=== PATIENT | female | born 1960 | race Two or more races ===

== ENCOUNTER 2024-03-23 16:03 | Inpatient (IN) | payer OTHER ==
[~2024-03-23] VITALS: Ht 165.1 cm; Wt 113.4 kg
[2024-03-23] MEDS ORDERED: LOSARTAN POTASS50 MG PO (16:20)
[2024-03-23] MEDS ORDERED: GABAPENTIN300 M2 PO (16:20)
[2024-03-23] MEDS ORDERED: INSULIN GL300 UNIT/2 SQ (16:20)
[2024-03-23] MEDS ORDERED: ATORVASTATIN CA40 MG PO (16:20)
[2024-03-23] MEDS ORDERED: 0.9 % SODIUM CHLORIDE 1,000 ML IV STA (16:43)
[2024-03-23] MEDS ORDERED: IPRATROPIUM/ALBUTEROL SULFATE 3 ML AMPUL.NEB IH SCH (16:45)
[2024-03-23] MEDS ORDERED: BENZONATATE 100 MG CAPSULE PO ONE (16:45)
[2024-03-23] MEDS ORDERED: AZITHROMYCIN 500 MG VIAL IV ONE (16:45)
[2024-03-23 17:41] LABS: ABG PH 7.422 (7.35-7.45); ABG PO2 67.2 mmHg (80-100); ABG pCO2 33.7 mmHg (35-45); BASE EXCESS -2.1 mmol/l; BICARBONATE 21.5 mmol/l (23-25); SaO2 93.4 %; Tco2 22.5 mmol/l
[2024-03-23 17:43] LABS: allen test SATISFACTORY; o2 21 %; puncture site RADIAL RIGHT
[2024-03-23 17:48] LABS: HEMATOCRIT 39.5 % (36.0-45.00); HEMOGLOBIN 13.5 g/dL (12.0-15.00); MEAN CORPUSCULAR HEMOGLOBIN 29.7 pg (27.00-32.0); MEAN CORPUSCULAR HGB CONC 34.1 g/dl (32.0-36.0); PLATELET COUNT 190 K/uL (150-450); RED BLOOD COUNT 4.53 M/uL (4.00-6.00); RED CELL DISTRIBUTION WIDTH 13.8 % (11.5-14.5)
[2024-03-23 18:15] LABS: CALCIUM 9.6 mg/dL (8.5-10.1); CREATININE SERUM 0.9 mg/dL (0.55-1.02); GFR 63.65; POTASSIUM 4.13 mEq/L (3.5-5.1)
[2024-03-23] MEDS ORDERED: METHYLPREDNISOLONE SOD SUCC 40 MG VIAL IV STA (20:39)
[2024-03-23] MEDS ORDERED: CEFTRIAXONE SODIUM 2,000 MG in 0.9 % SODIUM CHLORIDE 100 ML IV SCH (20:42)
[2024-03-23] MEDS ORDERED: 0.9 % SODIUM CHLORIDE 1,000 ML IV SCH (23:45)
[2024-03-23] MEDS ORDERED: INSULIN LISPRO 1,000 UNIT/10 ML UNITS SUBCUTANEO PRN (23:45)
[2024-03-23] MEDS ORDERED: DEXTROSE 50 % IN WATER 0.5 G/ML DISP.SYRIN IV PRN (23:45)
[2024-03-23] MEDS ORDERED: IPRATROPIUM BROMIDE 0.5 MG/2.5 ML AMPUL.NEB IH SCH (23:51)
[2024-03-23] MEDS ORDERED: LEVALBUTEROL HCL 1.25 MG/3 ML SOLUTION IH SCH (23:51)
[2024-03-23] MEDS ORDERED: MONTELUKAST SODIUM 10 MG TABLET PO SCH (23:53)
[2024-03-24] MEDS ORDERED: GUAIFEN/DEXTROMETHORPHAN/PE 10 ML BLIST.PACK PO SCH (01:00)
[2024-03-24] MEDS ORDERED: METHYLPREDNISOLONE SOD SUCC 40 MG VIAL IV SCH (01:00)
[2024-03-24 02:23] LABS: D DIMER 0.44 MG/L; PARTIAL THROMBOPLASTIN TIME 25.6 SECONDS (22.0-34.0)
[2024-03-24 02:37] LABS: PROTHROMBIN TIME 10.9 SECONDS (9.0-11.5)
[2024-03-24 04:12] LABS: URINE APPEARANCE Clear; URINE BILIRRUBIN Negative (NEGATIVE); URINE BLOOD Negative; URINE COLOR Yellow; URINE KETONE Trace (NEGATIVE); URINE LEUKOCYTE Negative; URINE NITRATE Negative; URINE PROTEIN Negative (NEGATIVE); URINE UROBILINOGEN 0.2 E.U./dl
[2024-03-24 04:15] VITALS: BP 119/70; O2SAT 96
[2024-03-24 04:30] LABS: URINE BACTERIA 201.5 uL (0.0-1933); URINE EPITHELIAL CELLS 7.1 uL (0.0-38.8); URINE RBC 23.1 uL (0.0-20.8); URINE WBC 3.2 uL (0.0-23.2)
[2024-03-24 05:01] LABS: URINE CAST 0.15 uL (0.0-1.40); URINE GLUCOSE >=1000 MG/DL (NEGATIVE)
[2024-03-24 05:02] LABS: URINE YEAST FEW /hpf
[2024-03-24 08:50] VITALS: BP 122/79
[2024-03-24] MEDS ORDERED: ENOXAPARIN SODIUM 40 MG/0.4 ML SYRINGE SUBCUTANEO SCH (09:00)
[2024-03-24] MEDS ORDERED: FAMOTIDINE/PF 20 MG in 0.9 % SODIUM CHLORIDE 8 ML IV PUSH SCH (09:00)
[2024-03-24] MEDS ORDERED: AZITHROMYCIN 500 MG in DEXTROSE 5 % IN WATER 250 ML IV SCH (09:00)
[2024-03-24] MEDS ORDERED: LOSARTAN POTASSIUM 50 MG TABLET PO SCH (09:00)
[2024-03-24] MEDS ORDERED: ATORVASTATIN CALCIUM 40 MG TABLET PO SCH (09:00)
[2024-03-24 16:23] VITALS: BP 127/76
[2024-03-24] MEDS ORDERED: VITAMIN B COMPLEX/LYSINE 1 ML ML PO SCH (17:00)
[2024-03-24 20:00] VITALS: BP 143/60; O2SAT 98
[2024-03-24] MEDS ORDERED: INSULIN GLARGINE,HUM.REC.ANLOG 1,000 UNITS/10 ML UNITS SUBCUTANEO STA (21:06)
[2024-03-25 01:51] VITALS: BP 120/73; O2SAT 99
[2024-03-25 06:24] LABS: CHOL HDL RATIO 3.3 (0-5.0)
[2024-03-25] MEDS ORDERED: INSULIN LISPRO 1,000 UNIT/10 ML UNITS SUBCUTANEO SCH ×2 (08:00→17:00)
[2024-03-25 09:11] VITALS: BP 132/88; O2SAT 99
[2024-03-25 15:26] LABS: HEMATOCRIT 38.6 % (36.0-45.00); HEMOGLOBIN 12.9 g/dL (12.0-15.00); MEAN CELL VOLUME 86.9 fL (80.00-100.00); MEAN CORPUSCULAR HEMOGLOBIN 29.1 pg (27.00-32.0); MEAN CORPUSCULAR HGB CONC 33.5 g/dl (32.0-36.0); PLATELET COUNT 170 K/uL (150-450); RED BLOOD COUNT 4.44 M/uL (4.00-6.00); RED CELL DISTRIBUTION WIDTH 13.9 % (11.5-14.5)
[2024-03-25 15:55] LABS: ALBUMIN 3.5 gm/dL (3.4-5.0); BILIRUBIN TOTAL 0.23 mg/dL (0.3-1.2); CALCIUM 9.4 mg/dL (8.5-10.1); CREATININE SERUM 0.78 mg/dL (0.55-1.02); GFR 75.08; GLOBULINA 3.4 G/DL (2.4-3.5); MAGNESIUM 2.1 mg/dL (1.8-2.4); PHOSPHOROUS 3.7 mg/dL (2.5-4.9); POTASSIUM 4.06 mEq/L (3.5-5.1); TOTAL PROTEIN 6.9 gm/dL (6.4-8.2)
[2024-03-25 16:00] VITALS: BP 149/88; O2SAT 95
[2024-03-25] MEDS ORDERED: FLUTICASONE PROPIONATE 50 MCG SPRAY NASAL SCH (16:22)
[2024-03-25] MEDS ORDERED: INSULIN GLARGINE,HUM.REC.ANLOG 1,000 UNITS/10 ML UNITS SUBCUTANEO SCH ×3 (21:00)
[2024-03-26 01:59] VITALS: BP 145/70; O2SAT 97
[2024-03-26 05:28] VITALS: BP 139/75; O2SAT 97
[2024-03-26] MEDS ORDERED: INSULIN LISPRO 1,000 UNIT/10 ML UNITS SUBCUTANEO SCH (08:00)
[2024-03-26 11:13] VITALS: BP 142/83; O2SAT 98
[2024-03-26 17:41] VITALS: BP 185/77
[2024-03-27 01:46] VITALS: BP 151/76; O2SAT 97
[2024-03-27 08:38] VITALS: BP 175/80
[2024-03-27] MEDS ORDERED: ACETAMINOPHEN 500 MG GEL..CAP PO PRN (11:15)
[2024-03-27] MEDS ORDERED: LOSARTAN POTASSIUM 50 MG TABLET PO STA (11:26)
[2024-03-27 17:19] VITALS: BP 148/74
[2024-03-27] MEDS ORDERED: METHYLPREDNISOLONE SOD SUCC 40 MG VIAL IV SCH (21:00)
[2024-03-27] MEDS ORDERED: FAMOtidine 20 MG TABLET PO SCH (21:00)
[2024-03-27 23:53] VITALS: BP 144/87; O2SAT 99
[2024-03-28 06:08] LABS: ALBUMIN 3.5 gm/dL (3.4-5.0); BILIRUBIN TOTAL 0.3 mg/dL (0.3-1.2); CALCIUM 8.9 mg/dL (8.5-10.1); CREATININE SERUM 0.62 mg/dL (0.55-1.02); GFR 97.86; GLOBULINA 3.4 G/DL (2.4-3.5); MAGNESIUM 2.2 mg/dL (1.8-2.4); PHOSPHOROUS 4.8 mg/dL (2.5-4.9); POTASSIUM 3.25 mEq/L (3.5-5.1); TOTAL PROTEIN 6.9 gm/dL (6.4-8.2)
[2024-03-28 08:11] VITALS: BP 143/85
[2024-03-28] MEDS ORDERED: LOSARTAN POTASSIUM 100 MG TABLET PO SCH (09:00)
[2024-03-28] MEDS ORDERED: POTASSIUM BICARBONATE/CIT AC 25 MEQ TABLET.EFF PO SCH (11:48)
[2024-03-28] MEDS ORDERED: POTASSIUM CHLORIDE 20MEQ/100ML H2O PB IV NR (12:00)
[2024-03-28 15:24] LABS: ABG PH 7.447 (7.35-7.45); ABG PO2 76.2 mmHg (80-100); ABG pCO2 33.7 mmHg (35-45); BASE EXCESS -0.5 mmol/l; BICARBONATE 22.8 mmol/l (23-25); SaO2 95.7 %
[2024-03-28 15:25] LABS: Tco2 23.8 mmol/l; allen test SATISFACTORY; o2 21 %; puncture site RADIAL LEFT
[2024-03-28 18:41] VITALS: BP 139/85; O2SAT 97
[2024-03-29 01:20] VITALS: BP 125/79; O2SAT 98
[2024-03-29] MEDS ORDERED: INSULIN LISPRO 1,000 UNIT/10 ML UNITS SUBCUTANEO SCH (08:00)
[2024-03-29] MEDS ORDERED: METHYLPREDNISOLONE SOD SUCC 40 MG VIAL IV SCH (09:00)
[2024-03-29 09:32] VITALS: BP 120/79; O2SAT 98
[2024-03-29] MEDS ORDERED: XOPENEX CO1.25 MG/0. IH (12:12)
[2024-03-29] MEDS ORDERED: LIPITOR40 M1 PO (12:12)
[2024-03-29] MEDS ORDERED: IPRATROPIU0.2 MG/1 M IH (12:12)
[2024-03-29] MEDS ORDERED: LOSARTAN POTAS100 MG PO (12:13)
[2024-03-29] MEDS ORDERED: MONTELUKAST SOD10 MG PO (12:13)
[2024-03-29] MEDS ORDERED: FLONASE16 GM NASAL (12:14)
[2024-03-29] MEDS ORDERED: FAMOTIDINE20 MG PO (12:14)
[2024-03-29] MEDS ORDERED: JANUMET 50-1,01 EACH PO (12:15)
[2024-03-29] MEDS ORDERED: DIABETIC TUSSI118 ML PO (12:18)
== END 2024-03-29 13:03 | disposition home or self-care (01) | DRG 203 ==
LOC: ER 16:03 → MEDJ 23:54
PROVIDERS: Emergency Medicine; General Practice; ADMIT Internal Medicine; ATTEND Internal Medicine
PROC: BW24ZZZ Computerized Tomography (CT Scan) of Chest and Abdomen (ICD-10-PCS; principal; 2024-03-23)
DX: J45.41 Moderate persistent asthma with (acute) exacerbation (principal); J40 Bronchitis, not specified as acute or chronic; I10 Essential (primary) hypertension; Z79.4 Long term (current) use of insulin; E78.5 Hyperlipidemia, unspecified; E11.65 Type 2 diabetes mellitus with hyperglycemia; E66.01 Morbid (severe) obesity due to excess calories

== ENCOUNTER 2024-10-09 04:47 | Emergency (ER) | payer OTHER ==
[~2024-10-09] VITALS: Ht 165.1 cm; Wt 90.7 kg
[~2024-10-09 04:47] MED LIST: ATORVASTATIN CA40 MG PO; DIABETIC TUSSI118 ML PO; FAMOTIDINE20 MG PO; FLONASE16 GM NASAL; GABAPENTIN300 M2 PO; INSULIN GL300 UNIT/2 SQ; IPRATROPIU0.2 MG/1 M IH; JANUMET 50-1,01 EACH PO; LIPITOR40 M1 PO; LOSARTAN POTAS100 MG PO; LOSARTAN POTASS50 MG PO; MONTELUKAST SOD10 MG PO; XOPENEX CO1.25 MG/0. IH
[2024-10-09] MEDS ORDERED: CEFTRIAXONE SODIUM 1,000 MG VIAL IM STA (06:05)
[2024-10-09] MEDS ORDERED: CEFTRIAXONE SODIUM 1,000 MG VIAL ONE (06:42)
[2024-10-09] MEDS ORDERED: MUPIROCIN1 G1 TOP (06:43)
[2024-10-09] MEDS ORDERED: CEPHALEXIN500 MG PO (06:43)
== END 2024-10-09 06:52 ==
LOC: ER 04:47
DX: L08.9 Local infection of the skin and subcutaneous tissue, unspecified (principal); I10 Essential (primary) hypertension; E11.9 Type 2 diabetes mellitus without complications; Z79.4 Long term (current) use of insulin

== ENCOUNTER 2024-12-02 08:54 | Emergency (ER) | payer OTHER ==
[~2024-12-02] VITALS: Ht 165.1 cm; Wt 99.8 kg
[~2024-12-02 08:54] MED LIST changes: +CEPHALEXIN500 MG PO; +MUPIROCIN1 G1 TOP
[2024-12-02] MEDS ORDERED: LEVALBUTEROL HCL 1.25 MG/3 ML SOLUTION IH ONE (10:00)
[2024-12-02] MEDS ORDERED: METHYLPREDNISOLONE SOD SUCC 40 MG VIAL IV ONE (10:00)
[2024-12-02] MEDS ORDERED: GUAIFEN/DEXTROMETHORPHAN/PE 10 ML BLIST.PACK PO ONE (10:00)
[2024-12-02 10:22] LABS: HEMATOCRIT 39.7 % (34.1-44.9); HEMOGLOBIN 13.1 g/dL (11.2-15.7); LYMPH # 0.79 (1.18-3.74); LYMPH % 10.2 % (19.3-53.1); MEAN CORPUSCULAR HEMOGLOBIN 28.6 pg (25.6-32.2); MONO # 0.36 (0.24-0.82); MONO % 4.7 % (4.7-12.5); NEUT # 6.55 (1.56-6.13); NEUT % 84.6 % (34.0-71.1); PLATELET COUNT 239 K/uL (163-369); RED BLOOD COUNT 4.58 M/uL (3.93-5.22); RED CELL DISTRIBUTION WIDTH 12.9 % (11.6-14.4)
[2024-12-02 10:57] LABS: ALBUMIN 3.8 gm/dL (3.4-5.0); BILIRUBIN TOTAL 0.42 mg/dL (0.3-1.2); CALCIUM 9.8 mg/dL (8.5-10.1); CREATININE SERUM 0.6 mg/dL (0.55-1.02); GFR 101.3; GLOBULINA 4.6 G/DL (2.4-3.5); POTASSIUM 4.1 mEq/L (3.5-5.1); TOTAL PROTEIN 8.4 gm/dL (6.4-8.2)
[2024-12-02 11:06] LABS: COVID-19 AG NEGATIVE (NEGATIVE)
[2024-12-02 11:07] LABS: INFLUENZA A AG NEGATIVE (NEGATIVE); INFLUENZA B AG NEGATIVE (NEGATIVE)
[2024-12-02 11:52] LABS: PH,URINE 6.5 (5.0-8.0); URINE APPEARANCE Clear; URINE BILIRRUBIN Negative (NEGATIVE); URINE BLOOD Negative; URINE COLOR Yellow; URINE GLUCOSE Negative (NEGATIVE); URINE KETONE Negative (NEGATIVE); URINE LEUKOCYTE Small; URINE NITRATE Negative; URINE PROTEIN Negative (NEGATIVE); URINE UROBILINOGEN 0.2 E.U./dl
[2024-12-02 11:56] LABS: URINE BACTERIA 681.6 uL (0.0-1933); URINE EPITHELIAL CELLS 24.3 uL (0.0-38.8); URINE RBC 10.3 uL (0.0-20.8); URINE WBC 17.7 uL (0.0-23.2)
[2024-12-02 12:01] LABS: URINE CAST 0.29 uL (0.0-1.40)
== END 2024-12-02 13:11 | disposition home or self-care (01) ==
LOC: ER 08:54
PROVIDERS: Emergency Medicine
DX: J45.909 Unspecified asthma, uncomplicated (principal); R05.9 Cough, unspecified; Z20.822 Contact with and (suspected) exposure to COVID-19; I10 Essential (primary) hypertension; E11.9 Type 2 diabetes mellitus without complications; Z79.4 Long term (current) use of insulin

== ENCOUNTER 2024-12-05 08:14 | Emergency (ER) | payer OTHER ==
[~2024-12-05] VITALS: Ht 165.1 cm; Wt 97.5 kg
[2024-12-05] MEDS ORDERED: BUDESONIDE 0.5 MG/2 ML AMPUL.NEB IH ONE (10:45)
[2024-12-05] MEDS ORDERED: BUDESONIDE0.5 MG/2 M IH (12:18)
== END 2024-12-05 12:29 | disposition home or self-care (01) ==
LOC: ER 08:14
DX: J45.909 Unspecified asthma, uncomplicated (principal); E11.9 Type 2 diabetes mellitus without complications; Z79.4 Long term (current) use of insulin

== ENCOUNTER 2025-02-01 08:49 | Emergency (ER) | payer OTHER ==
[~2025-02-01] VITALS: Ht 165.1 cm; Wt 107.5 kg
[~2025-02-01 08:49] MED LIST changes: +BUDESONIDE0.5 MG/2 M IH
[2025-02-01] MEDS ORDERED: IBUPROFEN600 MG PO (09:39)
[2025-02-01] MEDS ORDERED: DEXAMETHASONE SODIUM PHOSPHATE 4 MG/ML VIAL ONE (09:40)
[2025-02-01] MEDS ORDERED: KETOROLAC TROMETHAMINE 30 MG VIAL ONE (09:40)
[2025-02-01] MEDS ORDERED: DEXAMETHASONE SODIUM PHOSPHATE 4 MG/ML VIAL IM ONE (09:45)
[2025-02-01] MEDS ORDERED: KETOROLAC TROMETHAMINE 30 MG VIAL IM ONE (09:45)
== END 2025-02-01 09:53 | disposition home or self-care (01) ==
LOC: ER 08:51
DX: M77.32 Calcaneal spur, left foot (principal); E11.9 Type 2 diabetes mellitus without complications; Z79.4 Long term (current) use of insulin

== ENCOUNTER 2025-03-04 04:38 | Emergency (ER) | payer OTHER ==
[~2025-03-04] VITALS: Ht 165.1 cm; Wt 108.9 kg
[~2025-03-04 04:38] MED LIST changes: +IBUPROFEN600 MG PO
[2025-03-04] MEDS ORDERED: NITROGLYCERIN IN 5 % DEXTROSE 50 MG/250 ML BOTTLE IV STA (05:04)
[2025-03-04 06:20] LABS: ABG PH 7.386 (7.35-7.45); ABG PO2 83.3 mmHg (80-100); BICARBONATE 21.8 mmol/l (23-25); o2 21 %
[2025-03-04 08:02] LABS: URINE APPEARANCE Clear; URINE BILIRRUBIN Negative (NEGATIVE); URINE BLOOD Negative; URINE COLOR Yellow; URINE GLUCOSE Negative (NEGATIVE); URINE KETONE Negative (NEGATIVE); URINE LEUKOCYTE Small; URINE NITRATE Negative; URINE PROTEIN Negative (NEGATIVE); URINE UROBILINOGEN 0.2 E.U./dl
[2025-03-04 08:04] LABS: URINE BACTERIA 1516.6 uL (0.0-1933); URINE EPITHELIAL CELLS 48.2 uL (0.0-38.8); URINE RBC 10.9 uL (0.0-20.8); URINE WBC 38.6 uL (0.0-23.2)
[2025-03-04 08:38] LABS: ALT/SGPT 28 U/L (12-78); AST/SGOT 19 U/L (15-37); BILIRUBIN TOTAL 0.29 mg/dL (0.3-1.2); BUN CREA RATIO 20 (7.0-25.0); CREATININE SERUM 0.55 mg/dL (0.55-1.02); GFR 112.00; GLOBULINA 4.0 G/DL (2.4-3.5); GLUCOSE FASTING 124 mg/dL (65-100); OSMOLALITY SERUM 290 MOSM/KG (275-295)
[2025-03-04 08:43] LABS: BASO % 0.3 % (0.1-1.2); EOS # 0.14 (0.04-0.54); EOS % 2.1 % (0.7-7.0); LYMPH # 1.70 (1.18-3.74); LYMPH % 25.3 % (19.3-53.1); MEAN PLATELET VOLUME 11.40 fl (9.4-12.4); MONO # 0.55 (0.24-0.82); MONO % 8.2 % (4.7-12.5); NEUT # 4.28 (1.56-6.13); NEUT % 63.7 % (34.0-71.1); RED CELL DISTRIBUTION WIDTH 13.2 % (11.6-14.4)
[2025-03-04 09:00] LABS: CKMB < 1.0 NG/ML (0.5-3.6)
[2025-03-04 09:11] LABS: TYPE CELLS SQUAMOUS; URINE CAST 0.29 uL (0.0-1.40); URINE CRYSTALS FEW /HPF; URINE MUCUS SCANT
[2025-03-04] MEDS ORDERED: ONDANSETRON HCL 2 MG/ML VIAL ONE (09:36)
[2025-03-04] MEDS ORDERED: ONDANSETRON HCL 2 MG/ML VIAL IV ONE (09:45)
[2025-03-04] MEDS ORDERED: INTESTINEX680 M1 PO (12:34)
[2025-03-04] MEDS ORDERED: PEPCID AC20 MG PO (12:34)
[2025-03-04] MEDS ORDERED: ZOFRAN8 MG PO (12:34)
== END 2025-03-04 12:44 | disposition home or self-care (01) ==
LOC: ER 04:38
PROVIDERS: Physician Assistant Medical
DX: M94.0 Chondrocostal junction syndrome [Tietze] (principal); K52.9 Noninfective gastroenteritis and colitis, unspecified; R07.89 Other chest pain; E11.9 Type 2 diabetes mellitus without complications; Z79.4 Long term (current) use of insulin

== ENCOUNTER 2025-03-26 05:23 | Emergency (ER) | payer OTHER ==
[~2025-03-26] VITALS: Ht 165.1 cm; Wt 97.5 kg
[~2025-03-26 05:23] MED LIST changes: +INTESTINEX680 M1 PO; +PEPCID AC20 MG PO; +ZOFRAN8 MG PO
[2025-03-26 05:38] VITALS: BP 132/76; O2SAT 99
[2025-03-26] MEDS ORDERED: KETOROLAC TROMETHAMINE 60 MG VIAL IM ONE ×2 (05:45→05:48)
[2025-03-26] MEDS ORDERED: ACETAMINOPHEN 500 MG GEL..CAP PO ONE ×2 (05:45→05:48)
[2025-03-26] MEDS ORDERED: ORPHENADRINE CITRATE 30 MG/ML AMPUL IM ONE (05:45)
[2025-03-26] MEDS ORDERED: DEXAMETHASONE SODIUM PHOSPHATE 4 MG/ML VIAL IV ONE (05:45)
[2025-03-26] MEDS ORDERED: ORPHENADRINE CITRATE 30 MG/ML AMPUL ONE (05:48)
[2025-03-26] MEDS ORDERED: DEXAMETHASONE SODIUM PHOSPHATE 4 MG/ML VIAL ONE (05:49)
[2025-03-26] MEDS ORDERED: IBU600 MG PO (05:51)
[2025-03-26] MEDS ORDERED: NORFLEX100MG PO (05:51)
== END 2025-03-26 06:29 | disposition home or self-care (01) ==
LOC: ER 05:24
DX: M76.51 Patellar tendinitis, right knee (principal); E11.9 Type 2 diabetes mellitus without complications; Z79.84 Long term (current) use of oral hypoglycemic drugs; I10 Essential (primary) hypertension; E66.01 Morbid (severe) obesity due to excess calories; F41.0 Panic disorder [episodic paroxysmal anxiety]

== ENCOUNTER 2025-05-06 04:07 | Emergency (ER) | payer OTHER ==
[~2025-05-06] VITALS: Ht 165.1 cm; Wt 97.5 kg
[~2025-05-06 04:07] MED LIST changes: +IBU600 MG PO; +NORFLEX100MG PO
[2025-05-06] MEDS ORDERED: DEXAMETHASONE SODIUM PHOSP/PF 10 MG/ML VIAL IV STA (05:18)
[2025-05-06] MEDS ORDERED: CEFAZOLIN SODIUM 1,000 MG VIAL IM STA (05:18)
[2025-05-06] MEDS ORDERED: ALBUTEROL SULFATE 3 ML/2.5 MG AMPUL.NEB IH STA (05:19)
[2025-05-06] MEDS ORDERED: KETOROLAC TROMETHAMINE 60 MG VIAL IM STA (05:19)
[2025-05-06 06:10] LABS: BASO % 0.3 % (0.1-1.2); EOS # 0.11 (0.04-0.54); EOS % 1.4 % (0.7-7.0); LYMPH # 2.49 (1.18-3.74); LYMPH % 31.4 % (19.3-53.1); MEAN PLATELET VOLUME 10.70 fl (9.4-12.4); MONO # 0.47 (0.24-0.82); MONO % 5.9 % (4.7-12.5); NEUT # 4.81 (1.56-6.13); NEUT % 60.7 % (34.0-71.1); RED CELL DISTRIBUTION WIDTH 13.1 % (11.6-14.4)
[2025-05-06 06:44] LABS: BUN CREA RATIO 40.0 (7.0-25.0); CREATININE SERUM 0.47 mg/dL (0.55-1.02); GLUCOSE FASTING 124.0 mg/dL (65-100); OSMOLALITY SERUM 289.0 MOSM/KG (275-295)
[2025-05-06 06:45] LABS: GFR 134.27
[2025-05-06 07:51] LABS: URINE APPEARANCE Clear; URINE BILIRRUBIN Negative (NEGATIVE); URINE BLOOD Negative; URINE COLOR Yellow; URINE GLUCOSE Negative (NEGATIVE); URINE KETONE Negative (NEGATIVE); URINE LEUKOCYTE Large; URINE NITRATE Negative; URINE PROTEIN Negative (NEGATIVE); URINE UROBILINOGEN 0.2 E.U./dl
[2025-05-06 07:52] LABS: URINE EPITHELIAL CELLS 79.9 uL (0.0-38.8); URINE RBC 3.6 uL (0.0-20.8); URINE WBC 389.5 uL (0.0-23.2)
[2025-05-06 09:15] LABS: URINE CAST 0.14 uL (0.0-1.40)
== END 2025-05-06 07:08 | disposition home or self-care (01) ==
LOC: ER 04:07
PROVIDERS: General Practice
DX: M54.50 Low back pain, unspecified (principal); J20.9 Acute bronchitis, unspecified